=== PATIENT | female | born 1960 | race Caucasian/White ===

== ENCOUNTER → 2017-08-01 | Outpatient (CLI) | payer BC | LOC: CPRE 10:33 | DX: Z01.810 Encounter for preprocedural cardiovascular examination (principal); Z01.811 Encounter for preprocedural respiratory examination; N83.202 Unspecified ovarian cyst, left side; Z15.01 Genetic susceptibility to malignant neoplasm of breast | CPT/HCPCS: 71046; 93005 ==

== ENCOUNTER 2017-08-07 05:54 | Observation (INO) | payer BC ==
[2017-08-07] MEDS ORDERED: ACETAMINOPHEN 1000 MG/100 ML 100 ML IV (05:55)
[2017-08-07] MEDS ORDERED: METOPROLOL TARTRATE 25 MG TAB PO (06:15)
[2017-08-07] MEDS ORDERED: CHLORHEXIDINE GLUCONATE 2 % 1 PACK (2 CLOTHS) TOPICAL (06:15)
[2017-08-07] MEDS ORDERED: POVIDONE IODINE 5% (ANTISEPSIS KIT) 4 APPLICATIONS EACH NARE (06:15)
[2017-08-07] MEDS ORDERED: INSULIN HUMAN REGULAR 1,000 UNITS/10 ML VIAL SQ (06:15)
[2017-08-07] MEDS ORDERED: SODIUM CHLORID 0.9% 500 ML IV (06:15)
[2017-08-07] MEDS: LACTATED RINGER'S 1000 ML IV (06:55)
[2017-08-07] MEDS ORDERED: ceFAZolin INJ 1,000 MG VIAL (08:17)
[2017-08-07] MEDS: BUPIVACAINE HCL PF 0.5% 30 ML VIAL (08:29)
[2017-08-07] MEDS: VASOPRESSIN 20 UNITS/ML VIAL (11:14)
[2017-08-07] MEDS: SODIUM CHLORIDE 0.9% 20 ML VIAL ×2 (11:14→11:15)
[2017-08-07] MEDS ORDERED: IBUPROFEN 600 MG TAB PO (11:30)
[2017-08-07] MEDS ORDERED: SODIUM CHLORIDE 0.9% FLUSH 10 ML FLUSH IV FLUSH ×2 (11:30)
[2017-08-07] MEDS ORDERED: ONDANSETRON HCL 4 MG/2 ML VIAL IVP (11:30)
[2017-08-07] MEDS ORDERED: diphenhydrAMINE HCL 25 MG CAP PO (11:30)
[2017-08-07] MEDS ORDERED: NALOXONE HCL 0.4 MG/ML AMP IV PUSH (11:30)
[2017-08-07] MEDS ORDERED: oxyCODONE/ACETAMINOPHEN 5 MG/325 MG TAB PO ×2 (11:30)
[2017-08-07] MEDS ORDERED: DO NOT ADM ANY ANTICOAGULANT DRUGS (11:33)
[2017-08-07] MEDS ORDERED: MIDAZOLAM HCL 2 MG/2 ML VIAL (11:40)
[2017-08-07] MEDS: *PROMETHAZINE 25 MG/ML VIAL PERIprocedural use ONLY (12:03)
[2017-08-07] MEDS ORDERED: PROPOFOL 200 MG/20 ML AMP IV (12:10)
[2017-08-07] MEDS ORDERED: ROCURONIUM INJ 50 MG/5 ML SYRINGE IV PUSH (12:10)
[2017-08-07] MEDS ORDERED: LACTATED RINGER'S 1000 ML INJ 1,000 ML IV (12:10)
[2017-08-07] MEDS ORDERED: ONDANSETRON HCL 4 MG/2 ML VIAL IV (12:10)
[2017-08-07] MEDS ORDERED: DEXAMETHASONE SOD PHOS 4 MG/ML VIAL IV (12:10)
[2017-08-07] MEDS ORDERED: NEOSTIGMINE 5 MG/5 ML SYRINGE IV PUSH (12:10)
[2017-08-07] MEDS ORDERED: KETOROLAC TROMETHAMINE 30 MG/ML (IVP) VIAL IV PUSH (12:10)
[2017-08-07] MEDS ORDERED: GLYCOPYRROLATE 1 MG/5 ML SYRINGE IV PUSH (12:10)
[2017-08-07] MEDS ORDERED: ceFAZolin INJ 1,000 MG VIAL IV (12:10)
[2017-08-07] MEDS ORDERED: LIDOCAINE HCL 1% PF 5 ML SYRINGE OTHER (12:10)
[2017-08-07] MEDS: MORPHINE SULFATE 30 MG/30 ML PCA IV (12:29)
[2017-08-07] MEDS: LACTATED RINGER'S 1000 ML INJ 1,000 ML IV (12:30)
[2017-08-07] MEDS ORDERED: ONDANSETRON INJ 8 MG in DEXTROSE 5% IN WATER INJ 50 ML IV (12:30)
[2017-08-07] MEDS: DOCUSATE SODIUM 100 MG CAP PO (13:00)
[2017-08-07] MEDS: KETOROLAC TROMETHAMINE 30 MG/ML (IVP) VIAL IVP ×2 (17:06→22:30)
[2017-08-07] MEDS: ACETAMINOPHEN 1000 MG/100 ML 100 ML IV ×2 (17:07→21:20)
[2017-08-07] MEDS ORDERED: ZOLPIDEM TARTRATE 5 MG TAB PO (21:00)
[2017-08-07] MEDS: PCA - TOTAL MG MORPHINE DELIVERED PER SHIFT (22:00)
[2017-08-08] MEDS: ACETAMINOPHEN 1000 MG/100 ML 100 ML IV (02:52)
[2017-08-08] MEDS: KETOROLAC TROMETHAMINE 30 MG/ML (IVP) VIAL IVP (04:38)
[2017-08-08] MEDS: PCA - TOTAL MG MORPHINE DELIVERED PER SHIFT (06:00)
== END 2017-08-08 10:21 | disposition home or self-care (01) ==
LOC: HSDC 05:54 → HSDI 11:34 → H1EA 12:55
PROVIDERS: Obstetrics & Gynecology
DX: N83.202 Unspecified ovarian cyst, left side (principal); Z15.01 Genetic susceptibility to malignant neoplasm of breast; Z15.02 Genetic susceptibility to malignant neoplasm of ovary; Z15.09 Genetic susceptibility to other malignant neoplasm
CPT/HCPCS: 00840; 86850; 86900; 86901; 88112; 88305; 88307; 88331; 94150; 96374; 96376